=== PATIENT | female | born 1995 | race Caucasian/White ===

== ENCOUNTER 2022-06-29 00:25 | Day surgery (SDC) | payer BC, SELFPAY ==
[2022-06-21 14:35] VITALS: BMI 23.5
[2022-06-29 08:46] VITALS: BP 104/65; PULSE 84; RESP 18; TEMP 36.2; O2SAT 100
[2022-06-29] MEDS: LACTATED RINGERS 1,000 ML 150 ML IV CONT (08:56)
--- NOTE | 2022-06-29 09:08 | P.PNAN_ITS ---
Anes - Initial Pre Proc Eval Procedure: Operation Date: 06/29/22 10:00 Proposed Procedures p Colonoscopy - Blair Pineda MD Date/Time: 06/29/22 09:08 Surgeon: Blair Pineda MD Pre Op Diagnosis: alt.diarrhea/constipation, Abdominal Pain Patient Data Age: 27 Gender: F Height: 1.7 m Weight: 68 kg Last Vital Signs Temp 97.2 F L 06/29/22 08:46 Pulse 84 06/29/22 08:46 Resp 18 06/29/22 08:46 BP 104/65 06/29/22 08:46 Pulse Ox 100 06/29/22 08:46 O2 Del Method Room Air 06/29/22 08:46 Allergies Allergy/AdvReac Type Severity Reaction Status Date / Time No Known Allergies Allergy Verified 06/29/22 08:41 Home Medications Medication Instructions Recorded Confirmed Type No Home Medications 06/29/22 06/29/22 History Patient hx anesthesia problems: none Family hx anesthesia problems: none Results Review: All pre-operative results and documents have been reviewed as part of the pre- operative evaluation. [facility] Past Medical History Medical History (Updated 05/18/22 @ 16:35 by LISA Maria) Abdominal pain Anemia Anemia Diarrhea IBS (irritable bowel syndrome) Inflammatory arthritis Family History Family History Mother Hypertension Grandparent Heart disease Social History Social History Smoking status: Never smoker Alcohol intake: current Drinks per week: 1 Substance use: never Substance use type: does not use Living arrangements: with family Spiritual care concerns: No Anes - Eval Final PreProcedure Day of Procedure 06/29/22 09:08 Patient weight: normal Heart: regular rate and rhythm Lungs: clear to auscultation Airway: Mallampati scale class II Neurological: alert and oriented Last oral intake: >/= 8 hours ASA classification: II Emergent: no Anesthetic plan: proceed Anesthesia type and monitoring: general GIVS and standard monitoring Results Review: All pre-operative results and documents have been reviewed as part of the pre- operative evaluation. Informed Consent: The patient's anesthetic plan and its attendant risks and benefits were discussed with the patient/family/POA. Questions were solicited and answers provided to the satisfaction of the patient/family/POA.
--- NOTE | 2022-06-29 09:36 | PM.HPGS ---
History of Present Illness History of Present Illness Consent: Risks, benefits, and alternatives have been discussed and questions answered. Patient agrees to proceed with procedure. Chief complaint: alt.diarrhea/constipation, Abdominal Pain Narrative: Priscila Elizabeth is a 27 year old female with ibs and alternating diarrhea, constipation, never had colonoscopy. Review of Systems Constitutional: Constitutional: Denies headache(s) and Denies weakness Eyes: Eyes: Denies blurry vision ENT: Reports Normal hearing present, Denies headache(s) and Denies neck pain Cardiovascular: Cardiovascular: Denies chest pain and Denies dyspnea Respiratory: Respiratory: Denies dyspnea Gastrointestinal: Gastrointestinal: Reports no additional gastrointestinal complaints Genitourinary: Genitourinary: Denies dysuria Musculoskeletal: Musculoskeletal: Denies neck pain Integumentary/Breasts: Skin/Breast: Denies dry skin Neurologic: Reports Normal hearing present, Denies headache(s) and Denies weakness Psychiatric: Psychiatric: Denies anxiety Endocrine: Endocrine: Denies change in body appearance Hematologic/Lymphatic: Hematologic/Lymphatic: Denies easy bleeding Allergic/Immunologic: Allergic/Immunologic: Denies urticaria PMF Past Medical History Medical History (Updated 06/29/22 @ 09:37 by Blair Pineda MD) Abdominal pain Anemia Anemia Diarrhea IBS (irritable bowel syndrome) Inflammatory arthritis Family History Family History Mother Hypertension Grandparent Heart disease Social History Social History Smoking status: Never smoker Alcohol intake: current Drinks per week: 1 Substance use: never Substance use type: does not use Living arrangements: with family Spiritual care concerns: No Meds Home Medications and Allergies Home Medications Medication Instructions Recorded Confirmed Type No Home Medications 06/29/22 06/29/22 History Allergies Allergy/AdvReac Type Severity Reaction Status Date / Time No Known Allergies Allergy Verified 06/29/22 08:41 Vital Signs Vital Signs - 24 hr 06/29/22 08:46 Temperature 97.2 F L Pulse Rate 84 Respiratory Rate 18 Blood Pressure 104/65 Pulse Oximetry 100 Oxygen Delivery Room Air Exam Const: General: comfortable and no acute distress HENMT: Face/Nose/Sinus: Normal nares present Eyes: General: appearance normal, both eyes and all related structures Neck: Neck: no JVD Resp: Auscultation: clear to auscultation bilaterally Cardio: Rate: regular rate Rhythm: regular rhythm GI: Inspection: non-distended GI Palp: Yes Soft to palpation Skin: General skin exam: normal color Neuro: General: gait normal Speech: normal speech Extrem: General: normal to inspection Psych: Mental Status: mental status grossly normal Assessment and Plan Assessment and plan (1) Abdominal pain: Code(s): R10.9 - Unspecified abdominal pain Status: Acute (2) IBS (irritable bowel syndrome): Code(s): K58.9 - Irritable bowel syndrome without diarrhea Status: Acute Assessment and Plan: colonoscopy, consider random colon bx
[2022-06-29 09:54] VITALS: BP 87/47; PULSE 76; RESP 20; O2SAT 93
[2022-06-29 10:04] VITALS: BP 90/52; PULSE 79; RESP 20; O2SAT 98
[2022-06-29 10:14] VITALS: BP 98/64; PULSE 79; RESP 22; O2SAT 98
== END 2022-06-29 10:24 | disposition home or self-care (01) ==
PROVIDERS: PCP Family Medicine; Visit Provider Internal Medicine Gastroenterology
PROC: 0DJD8ZZ Inspection of Lower Intestinal Tract, Via Natural or Artificial Opening Endoscopic (ICD-10-PCS; CPT 45378; principal; 2022-06-29 10:00)
DX: K58.9 Irritable bowel syndrome, unspecified (principal); K64.8 Other hemorrhoids
CPT/HCPCS: 45380; 88305; J2704; J7120